=== PATIENT | female | born 1965 | race Hispanic/Latino ===

== ENCOUNTER 2018-08-29 02:39 | Emergency (ER) | payer MEDICARE, OTHER ==
[2018-08-29 03:13] LABS: #Basophils 0.1 thou/uL (0.0-0.2); #Eosinphils 0.1 thou/uL (0.0-0.7); #Lymphocytes 1.8 thou/uL (1.20-3.40); #Monocytes 0.4 thou/uL (0.11-0.59); %Lymphocytes 24.7 % (21.0-51.0); %Monocytes 5.7 % (0.0-10.0); %Neutrophils 66.7 % (42.0-75.0); Hemoglobin 12.1 g/dL (12.0-16.0); Mean Corpuscular HGB CONC 32.8 g/dL (32.0-36.0); Mean Corpuscular Hemoglobin 30.2 pg (27.0-31.0); Mean Corpuscular Volume 91.9 fL (78.0-98.0); Mean Platelet Volume 8.4 fL (7.4-10.4); Platelet Count 238 thou/uL (130-400); RBC Distribution Width 12.3 % (11.5-14.5); White Blood Cell (WBC) Count 7.5 thou/uL (4.8-10.8)
[2018-08-29 03:41] LABS: ALT (SGPT) 14 U/L (8-55); AST (SGOT) 17 U/L (5-34); Alkaline Phosphatase 69 U/L (40-150); Anion Gap 13 mmol/L (10-20); BUN (Urea Nitrogen) 18 mg/dL (9.8-20.1); Bilirubin, Total 0.3 mg/dL (0.2-1.2); Calc. Creatinine Clearance 0 mL/min (70-130); Carbon Dioxide 26 mmol/L (22-29); Chloride 105 mmol/L (98-107); Estimated GFR-MDRD Greater than 90; Globulin 3.2 g/dL (2.4-3.5); Glucose 134 mg/dL (70-105); Potassium 3.7 mmol/L (3.5-5.1); Protein, Total 7.2 g/dL (6.0-8.3); Sodium 140 mmol/L (136-145)
--- NOTE | 2018-09-10 16:11 | EKG ---
Test Reason : Blood Pressure : / mmHG Vent. Rate : 073 BPM Atrial Rate : 073 BPM P-R Int : 152 ms QRS Dur : 088 ms QT Int : 394 ms P-R-T Axes : 006 008 119 degrees QTc Int : 434 ms Normal sinus rhythm Left ventricular hypertrophy with repolarization abnormality Abnormal ECG Confirmed by MARNI ROWAN ([id number]), scientific publications editor JUAN MONTES ([id number]) on 09/10/2018 4:10:56 PM Referred By: Confirmed By:MARNI ROWAN
== END 2018-08-29 05:07 | disposition home or self-care (01) ==
LOC: ERS 02:39
DX: R60.0 Localized edema (principal); K21.9 Gastro-esophageal reflux disease without esophagitis; I10 Essential (primary) hypertension; K43.9 Ventral hernia without obstruction or gangrene; Z79.899 Other long term (current) drug therapy
CPT/HCPCS: 80053; 83880; 85025; 93005

== ENCOUNTER 2019-05-30 16:10 | Outpatient (CLI) | payer MEDICARE, OTHER, MEDICAID ==
--- NOTE | 2019-05-30 11:08 | HP ---
HISTORY OF PRESENT ILLNESS: Ms. Carmen Nuñez is a 53-year-old who [facility] of an abdominal wound subsequent to repair of an incisional hernia with reinforcement of the abdominal wall with a porcine derivative mesh product on 02/11/2012. The patient states that this wound has never healed. She states that she developed a second abdominal wound in a region of scar tissue approximately 1 month ago. The patient states that for both wounds, she has been performing wet-to-dry dressing changes. The patient has no other complaints today. She denies any fever or chills. PAST MEDICAL HISTORY: 1. Gastroesophageal reflux disease. 2. Hypertension. 3. Arthritis. 4. Varicose veins. PAST SURGICAL HISTORY: 1. Cholecystectomy. 2. Bilateral tubal ligation. 3. Surgery for perforated sigmoid diverticulitis. 4. Colostomy reversal. 5. Wound exploration x2 following surgery for perforated sigmoid diverticulitis. 6. Multiple incisional hernia repairs. 7. Right inguinal hernia repair. 8. Re-repair of inguinal/incisional hernia. MEDICATIONS: 1. Suboxone. 2. Dexilant. 3. Lisinopril. 4. Ibuprofen. ALLERGIES: NUBAIN. SOCIAL HISTORY: Social history is negative for tobacco or EtOH use. FAMILY HISTORY: Family history is negative for diabetes mellitus or coronary artery disease. PHYSICAL EXAMINATION: VITAL SIGNS: Temperature 98.4, pulse 73, respirations 12, blood pressure 182/84. GENERAL: A 53-year-old female lying on table in examination room, in no acute distress. HEENT: Normocephalic and atraumatic. NECK: No nuchal rigidity. CHEST: Clear to auscultation. CV: Regular rate and rhythm. ABDOMEN: Soft. Two wounds of the abdomen are present, which measure approximately 4.7 x 5.0 cm and 3.7 x 2.0 cm. Both wounds contain granulation tissue within the wound margins. No purulent drainage is associated with either wound. No erythema of the skin surrounding either wound is present. No maceration of the skin of the periwound of either wound is noted. EXTREMITIES: No clubbing or cyanosis. Varicosities are present over the right and left lower extremities. NEUROLOGIC: Grossly nonfocal. ASSESSMENT AND PLAN: 1. Abdominal wound, subsequent to repair of an incisional hernia. The patient underwent the preceding procedure on 02/11/2012 and at the time of surgery, the abdominal wall was reinforced with a porcine derivative mesh product. A second wound in an area of scar tissue opened approximately 1 month ago. For the wound present since 02/11/2012, the patient has received a trial of negative pressure therapy. The patient is currently performing wet-to-dry dressing changes for both wounds. I have recommended the patient to continue wet-to-dry dressing changes with Alice. I have also recommended to Dilip Nuñez that she schedule an evaluation for her abdominal wounds with Dr. Carter, perhaps, the patient may be a candidate for surgical closure of the wounds either primarily or with skin graft placement. The patient understands and is in agreement with the preceding treatment plan. No antibiotics will be prescribed today based upon the appearance of the wounds. The patient states she will contact the clinic in order to schedule her next appointment. 2. Gastroesophageal reflux disease. 3. Arthritis. 4. Hypertension. 5. Varicose veins of lower extremities. Job ID: [id number]
[2019-06-01] MEDS ORDERED: Sodium Chloride 0.9% 15 ML NEB ONE (14:33)
== END 2019-05-30 16:11 | disposition home or self-care (01) ==
LOC: WCC 16:10
PROVIDERS: ATTEND Family Medicine
DX: T81.89XD Other complications of procedures, not elsewhere classified, subsequent encounter (principal)
CPT/HCPCS: 97139; 97602; G0463; 99203

== ENCOUNTER 2019-06-02 07:41 | Emergency (ER) | payer MEDICARE, OTHER, MEDICAID | END 2019-06-02 08:52 | disposition home or self-care (01) | LOC: ERS 07:41 | DX: L25.9 Unspecified contact dermatitis, unspecified cause (principal); K21.9 Gastro-esophageal reflux disease without esophagitis; I10 Essential (primary) hypertension; Z79.899 Other long term (current) drug therapy | CPT/HCPCS: 99282 ==

== ENCOUNTER 2019-06-28 13:23 | Emergency (ER) | payer MEDICARE, OTHER, MEDICAID ==
[2019-06-28 14:00] LABS: #Eosinphils 0.1 thou/uL (0.0-0.7); #Lymphocytes 1.2 thou/uL (1.20-3.40); #Monocytes 0.4 thou/uL (0.11-0.59); #Neutrophils 4.9 thou/uL (1.40-6.50); %Basophils 0.5 % (0.0-1.0); %Lymphocytes 17.3 % (21.0-51.0); %Monocytes 6.4 % (0.0-10.0); %Neutrophils 74.7 % (42.0-75.0); Hemoglobin 11.3 g/dL (12.0-16.0); Mean Corpuscular HGB CONC 33.2 g/dL (32.0-36.0); Mean Corpuscular Hemoglobin 30.1 pg (27.0-31.0); Mean Corpuscular Volume 90.9 fL (78.0-98.0); Mean Platelet Volume 7.8 fL (7.4-10.4); Platelet Count 245 thou/uL (130-400); RBC Distribution Width 12.8 % (11.5-14.5); Red Blood Cell (RBC) Count 3.76 mill/uL (4.20-5.40); White Blood Cell (WBC) Count 6.6 thou/uL (4.8-10.8)
--- NOTE | 2019-06-28 14:16 | RAD ---
RADIOGRAPH CHEST 2 VIEW: DATE: 06/28/2019 HISTORY: 54-year-old female with chest pain FINDINGS: The thoracic aorta is tortuous and ectatic. There is no evidence of airspace density, pulmonary edema , or pneumothorax. There is no cardiomegaly or pleural effusion. IMPRESSION: 1) No acute cardiopulmonary findings. 2) ectasia of thoracic aorta.
[2019-06-28 14:21] LABS: ALT (SGPT) 13 U/L (8-55); AST (SGOT) 15 U/L (5-34); Albumin 4.2 g/dL (3.5-5.0); Alkaline Phosphatase 91 U/L (40-150); Anion Gap 14 mmol/L (10-20); BUN (Urea Nitrogen) 17 mg/dL (9.8-20.1); Bilirubin, Total 0.3 mg/dL (0.2-1.2); Calc. Creatinine Clearance 0 mL/min (70-130); Calcium 9.2 mg/dL (7.8-10.44); Carbon Dioxide 24 mmol/L (22-29); Chloride 104 mmol/L (98-107); Estimated GFR-MDRD Greater than 90; Globulin 2.9 g/dL (2.4-3.5); Glucose 119 mg/dL (70-105); Protein, Total 7.1 g/dL (6.0-8.3); Sodium 138 mmol/L (136-145)
[2019-06-28 15:24] LABS: Bacteria/HPF None Seen HPF (None Seen); Bilirubin Negative (Negative); Blood, Urine 2+ (Negative); Clarity Clear (Clear); Glucose, Urine (Dipstick) Normal (Negative); Leukocyte 75 Leu/uL (Negative); Nitrite Negative (Negative); Protein, Urine (Dipstick) 20 mg/dL (Neg-Trace); RBC/HPF 21-50 HPF (0-3); Urobilinogen Normal mg/dL (Less than 2); WBC/HPF 0-3 HPF (0-3)
== END 2019-06-28 15:50 | disposition home or self-care (01) ==
LOC: ERS 13:23
DX: S29.012A Strain of muscle and tendon of back wall of thorax, initial encounter (principal); K21.9 Gastro-esophageal reflux disease without esophagitis; I10 Essential (primary) hypertension; Z79.899 Other long term (current) drug therapy; X50.9XXA Other and unspecified overexertion or strenuous movements or postures, initial encounter
CPT/HCPCS: 71046; 80053; 81003; 81015; 84484; 85025; 93005